=== PATIENT | female | born 1960 | race Caucasian/White ===

== ENCOUNTER → 2016-08-26 | Outpatient (CLI) | payer OTHER, MEDICARE ==
[~2016-08-26] MED LIST: ALLEGRA ALLERGY60 MG PO; AMBIEN 10 MG TA10 MG PO; CYMBALTA60 MG PO; DIOVAN160 MG PO; FLEXERIL PO; FOLIC ACID1 MG PO; MOBIC15 MG PO; ORENCIA125 MG/1 M; PERCOCET 5-3251 EACH PO; SYNTHROID75 MCG PO; XANAX 0.5 MG0.5 M1 PO
== END ==
LOC: RAD 13:18
DX: Z12.31 Encounter for screening mammogram for malignant neoplasm of breast (principal)

== ENCOUNTER → 2016-09-03 | Outpatient (CLI) | payer OTHER, MEDICARE | LOC: CAT 14:41 | DX: M54.2 Cervicalgia (principal); R22.1 Localized swelling, mass and lump, neck ==

== ENCOUNTER → 2017-06-07 | Outpatient (CLI) | payer OTHER, MEDICARE ==
[~2017-06-07] MED LIST changes: +ASPIRIN325 PO; +AZITHROMYCIN 2250 MG PO; +B COMPLEX1 EACH PO; +CENTRUM SILVER1 EAC4 PO; +CLEOCIN HCL150 MG TOP; +ESCITALOPRAM OX10 MG PO; +LEVOTHYROXINE125 MCG PO; +MAGOX 400400 MG PO; +ORENCIA50 MG/0.4 INJECTION; +OXYCODONE-ACET1 EACH PO; +SYNTHROID125 MC1 PO; +VITAMIN D35000 UNI1 PO
== END ==
LOC: RAD 14:30
DX: M48.07 Spinal stenosis, lumbosacral region (principal)

== ENCOUNTER → 2017-06-14 | Outpatient (CLI) | payer OTHER, MEDICARE | LOC: MRI 13:22 → EDSTATUS 14:52 → MRI 14:52 | DX: M47.816 Spondylosis without myelopathy or radiculopathy, lumbar region (principal); M47.894 Other spondylosis, thoracic region; M54.12 Radiculopathy, cervical region; N13.30 Unspecified hydronephrosis; N13.4 Hydroureter ==

== ENCOUNTER → 2017-06-25 | Outpatient (CLI) | payer OTHER, MEDICARE ==
[~2017-06-25] VITALS: Ht 167.6 cm; Wt 96.4 kg
[~2017-06-25] MED LIST changes: -ASPIRIN325 PO
--- NOTE | ~2017-06-25 | HPC ---
[facility] [address] [place] [address] PAIN MANAGEMENT CONSULTATION Name: SHELTON EASTMAN [id number] Admission: 06/25/17 Attend Phys: Alma Alvarez MD Discharge: Date of : 60 Report #: [id number] THIS REPORT FOR: //name// CC: Anclemo Alvarez DATE OF SERVICE: 06/25/2017 FOLLOWUP COMPLAINT: Back, leg, and arm pain. HISTORY OF PRESENT ILLNESS: The patient is a 56-year-old female who has been experiencing pain and discomfort in the low back area with pain radiating down into her legs. She also has some pain and discomfort up in the neck area. She rates her overall pain as an 8/10 at this juncture. Does have a history of joint disease and arthritis. She has some pain and discomfort in the upper back, mid back, lower back as well as in the right leg with pain radiating down past the knee. She describes it as shooting, aching and tender. It can rise to the level of 10. It is exacerbated when she is bending over, picking up greater than 5 pounds. Notes that the pain sometimes is helped by use of a heating pad. Also, notes some improvement when she is lying down. She denies any back surgery. States that she has been disabled since 2013. 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 She has had rheumatoid arthritis for about 25 years with chronic pain. Did have an epidural steroid injection in 2006 and felt that this was beneficial. She has taken biologic agents. ALLERGIES: PROZAC, BENADRYL, SULFA, AMPICILLIN, AUGMENTIN, AND PROMETHAZINE. CURRENT MEDICATIONS: Include abatacept 50 mg/0.4 mL syringe take 50 mg injections q.4 weeks, clindamycin 150 mg topical daily, escitalopram 10 mg daily, oxycodone 5/325 at bedtime, Xanax 0.5 mg 2 tabs, and Meloxicam 15 mg. PAST MEDICAL HISTORY: Arthritis, thyroid disease, and gallbladder disease. PAST SURGICAL HISTORY: Cholecystectomy and appendectomy. SOCIAL HISTORY: She is disabled, has not worked since she has been stable since 2013. 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 In 2006, hurt her back, which was work related. REVIEW OF SYSTEMS: Fatigue, weakness, shortness of breath, frequent urination, kidney stones, headaches, lightheadedness, numbness and tingling sensation, nervousness, depression, thyroid disease, history, and cold intolerance. LABORATORY DATA: MRI of the lumbar spine dated 06/14/2017: [place] [address] PAIN MANAGEMENT CONSULTATION Name: SHELTON EASTMAN Room #: REG ORA Marley#: [id number] Admission: 06/25/17 Attend Phys: Alma Alvarez MD Discharge: Date of : 60 Report #: [id number] 1. L3-L4 shows diffuse disk bulging. There is moderate facet spurring and degenerative change. The central canal is lower limits of normal measuring 10 mm. There is minimal inferior foraminal encroachment. L4-L5 shows mild diffuse disk bulge. There is a slight more focal component laterally into the neural foramen bilaterally greater on the left. This causes minimal inferior foraminal encroachment. Central canal is maintained. Prominent facet spurring and degenerative changes noted. 2. L5-S1 shows disk bulging, which is symmetrical to the left with some neural foraminal encroachment, greater on the left. Central canal is maintained. Moderate facet spurring and degenerative changes are noted. There is suggestion of right hydronephrosis and hydroureter. 3. MRI of the cervical spine dated shows C6-C7, no focal disk fusion. There is minor disk bulge. Neural foramen and central canal are well maintained. 4. C7-T1 shows no focal disk fusion. Central canal and neural foramen are maintained. 5. Mild upper thoracic degenerative changes. PAIN CLINIC ASSESSMENT: 1. Osteoarthritis. The patient has a history of rheumatoid arthritis and is being treated as such. 2. Height 5 feet 6 inches, weight 212 pounds, BMI is 34. 3. VITAL SIGNS: Blood pressure 112/75, pulse 75, respiratory rate 16, room air saturation 98%. 4. Pain intensity 10/10. 5. Fall risk. The patient has fallen in the last 3 months. 6. The patient is not on a blood thinner. 7. History of hypertension. The patient is not being treated for hypertension. 8. Opioid therapy greater than 6 weeks. The patient is not receiving opioid therapy greater than 6 weeks. 9. Risk assessment tool. 10. Functional assessment tool 65-70 showing impact of her pain condition on her daily life. 11. Recreational drug use. Denies use of recreational drugs. 12. Tobacco. Has never smoked cigarettes. 13. Alcohol. Denies use of alcoholic beverages. PHYSICAL EXAMINATION: GENERAL: The patient is a well-developed female, appears her stated age. AFFECT: The patient's affect is appropriate. ORIENTATION: The patient is alert and oriented x 3. HEENT: Normocephalic, atraumatic. Extraocular muscles intact. Hearing is within normal limit. Sclerae nonicteric. NECK: Without adenopathy, JVD or bruits. Reasonable function with flexion, extension, left and right bending, left and right lateral rotation. The patient does note some stiffness with these motions. HEART: Regular rate. No bruits or murmurs. [facility] [address] [place] [address] PAIN MANAGEMENT CONSULTATION Name: SHELTON EASTMAN Room #: REG [facility].#: [id number] Admission: 06/25/17 Attend Phys: Alma Alvarez MD Discharge: Date of : 60 Report #: [id number] CHEST: Clear to auscultation without rubs, rhonchi, or rales. ABDOMEN: Protuberant without organomegaly. EXTREMITIES: Muscle strength to the upper area is 5/5. Muscle bulk is symmetrical. Deep tendon reflexes +1, biceps. The patient does have some perception of some pins and needle sensation in her upper arm and in her hands, right side greater than left. MUSCULOSKELETAL: Shows normal without significant scoliosis, kyphosis or lordosis. The patient has pain and discomfort, which radiates down the right posterior thigh in the L5-S1 distribution with pain radiating down into her foot. Has some paraspinous muscle tenderness in the thoracic area as well as in the lumbar L4-L5 area in the paraspinous muscles. Straight leg raise on the right is positive. Primo sign is negative. IMPRESSION: 1. Thyroid disease. 2. Lumbar radiculopathy involving the right lower extremity. 3. Some neck pain with some discomfort involving the upper extremities, right side greater than left with some numbness and tingling. 4. Rheumatoid arthritis. RECOMMENDATIONS: We discussed treatment options with the patient. Again, she is having pain and discomfort in the lower extremity with pain radiating down to the lower portion of her leg with some numbness and tingling. She also has some discomfort in the upper extremity. MRI does not show a significant area of pathology in this area. We have discussed the possibility of another epidural steroid injection. She had one in the past and noted some improvement in 2006. We used a model to indicate the area of probable pathology in the lower back area. Risks and benefits of a lumbar epidural steroid injection was discussed. Possible complications of the procedure, which could include, but are not limited to infection, increased muscle soreness, worsening of pain, no improvement in pain, trauma to the nerve, spinal headache were reviewed. The patient evaluated the situation and elects to proceed. PROCEDURE NOTE: The patient was placed in the prone position. Her back was sterilely prepped with a Betadine solution. Anterior, posterior as well as lateral viewing of the spine was provided using fluoroscopy. The target area was noted. This area was then infiltrated with 0.25% bupivacaine. A 17-gauge Tuohy with loss of resistance technique was used to gain access to the epidural space. There was no CSF, heme or paresthesia. Total of 80 mg Depo-Medrol, 40 mg triamcinolone and 2 mL of 0.25% bupivacaine was injected. The patient tolerated the procedure well. Pain decreased from 10 to 5 at the time of discharge. Total of 14 seconds fluoroscopy time was used. She will continue with her current medical regimen. She will follow up in the near future. Hopefully, she will find that things continue to be beneficial. [address] [address] PAIN MANAGEMENT CONSULTATION Name: SHELTON EASTMAN Room #: REG ROA Marley#: [id number] Admission: 06/25/17 Attend Phys: Alma Alvarez MD Discharge: Date of : 60 Report #: [id number] We would like to thank you for letting us participate in her care. We hope she continues to improve. By: [id number] Alma Alvarez MD /nt
[2017-06-25 09:31] VITALS: BP 112/75
== END | disposition home or self-care (01) ==
LOC: PAIN 07:20
DX: M51.16 Intervertebral disc disorders with radiculopathy, lumbar region (principal); I10 Essential (primary) hypertension; Z90.49 Acquired absence of other specified parts of digestive tract; Z79.891 Long term (current) use of opiate analgesic; Z87.891 Personal history of nicotine dependence; Z88.8 Allergy status to other drugs, medicaments and biological substances; M19.90 Unspecified osteoarthritis, unspecified site; E07.9 Disorder of thyroid, unspecified; Z68.34 Body mass index [BMI] 34.0-34.9, adult; F11.20 Opioid dependence, uncomplicated

== ENCOUNTER 2017-07-28 05:21 | Inpatient (IN) | payer OTHER, MEDICARE ==
[2017-07-21 13:22] LABS: HEMATOCRIT 41.1 % (37.0-47.0); HEMOGLOBIN 13.6 gm/dL (12.0-15.0); MCH 29.4 pg (26.0-34.0); MCV 89.3 fL (80.0-100.0); RBC 4.61 mil/uL (4.20-5.00); RDW 13.9 % (10.5-14.5); URINE BILIRUBIN NEGATIVE (Negative); URINE BLOOD NEGATIVE (Negative); URINE CLARITY CLEAR; URINE COLOR YELLOW; URINE GLUCOSE-RANDOM* NEGATIVE (Negative); URINE KETONES NEGATIVE (Negative); URINE LEUKOCYTES-REFLEX TRACE (Negative); URINE NITRITE-REFLEX NEGATIVE (Negative); URINE PROTEIN (DIPSTICK) NEGATIVE (Negative); URINE UROBILINOGEN 0.2 E.U./dl (0.2-1.0); WBC 8.1 thou/uL (4.0-11.0)
[2017-07-21 13:29] LABS: ALBUMIN 3.5 g/dL (3.4-5.0); CALCIUM 9.3 mg/dL (8.5-10.1); CREATININE 0.9 mg/dL (0.6-1.0); POTASSIUM 3.8 mmol/L (3.5-5.1)
[2017-07-21 13:39] LABS: PROTIME 9.9 Seconds (9.3-11.4)
[~2017-07-28] VITALS: Ht 167.6 cm; Wt 93.0 kg
--- NOTE | ~2017-07-28 | EKG ---
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
--- NOTE | ~2017-07-28 | O ---
[facility] [place] [address] OPERATIVE REPORT Name: SHELTON EASTMAN Room #: 404-P [facility] IN M.R.#: [id number] Admission: 07/28/17 Attend Phys: Bharat Van MD Discharge: Date of : 60 Report #: [id number] THIS REPORT FOR: //name// CC: Ancelmo Van DATE OF SERVICE: 07/28/2017 PREOPERATIVE DIAGNOSIS: Right knee rheumatoid arthritis. POSTOPERATIVE DIAGNOSIS: Right knee rheumatoid arthritis. PROCEDURE: Right total knee arthroplasty with NAVIO assist. SURGEON: Bharat Van M.D. EXPORT FREIGHT SPECIALIST: Marquita Heath PA-C. ANESTHESIA: LMA with an adductor canal block. INDICATION FOR EXPORT FREIGHT SPECIALIST: Throughout the case, extensive retraction and manipulation of the knee was required. This was afforded to me by my assistant womens volleyball coach. IMPLANTS: Rucker and Nephew size 4 Legion Oxinium posterior stabilized femur, size 3 tibia, size 35 patella and a size 11 highly constrained polyethylene liner. TOURNIQUET TIME: 81 minutes. ESTIMATED BLOOD LOSS: 25 mL. COMPLICATIONS: None. SPECIMENS: None. CONDITION UPON LEAVING THE OPERATING ROOM: Stable. INDICATIONS FOR PROCEDURE: The patient is a 56-year-old female who has rheumatoid arthritis. She has had severe right knee pain and after failure of conservative treatment for this, she elected for right total knee arthroplasty. DESCRIPTION OF PROCEDURE: Risks, benefits, alternatives, complications were discussed in detail with the patient including but not limited to risk of anesthesia, risk of damage to nerves, arteries, blood vessels, risk for infection, bleeding, risk for continued knee pain, need for reoperation. Informed consent was obtained from the patient. Right knee was appropriately [address] [address] OPERATIVE REPORT Name: SHELTON EASTMAN Room #: 404-P [facility] IN .R.#: [id number] Admission: 07/28/17 Attend Phys: Bharat Van MD Discharge: Date of : 60 Report #: [id number] marked in the preoperative holding area. Adductor canal block was placed by anesthesia. IV clindamycin was given for preoperative antibiotics. She was brought to the operating room and placed in supine position on operating room table. LMA anesthesia was induced without complication. Tourniquet was placed on the right thigh. Right lower extremity was prepped and draped in normal sterile fashion. Timeout was performed properly identifying the patient and procedure as well as the instrumentation and implants. All in the operating room were in agreement. Standard midline approach to the knee was made with 10 blade through the skin. Dissection was taken down sharply to the fascia and deep flaps were developed medially and laterally. Fresh 10 blade was used to make a medial parapatellar arthrotomy and the knee was inspected, and there was extensive arthritic change tricompartmentally of the knee. The osteophytes were removed from the femur. ACL and PCL were removed sharply. The reference pin for the femur and tibia were then placed in the system. The NAVIO system was calibrated and the knee was taken through range of motion to determine resection and balancing. The data points for this femur and tibia were then taken using the probe and the olivia was used to drill the guide holes for the femoral resection guide and a tibial resection guide. Femoral section guide was pinned in place and distal femoral cut was made. Size 4 femur was the appropriate size and then the size four, 4-in-1 cutting block were placed and the anterior, posterior and chamfer cuts were made on the femur. Tibia was subluxed anteriorly and tibial resection was made and flexion and extension gaps were checked and found to have good balance in flexion and extension. There was some laxity of the MCL, which may have been from over aggressive retraction, it was felt that this could be made up for using a highly constrained liner. The tibia was sized, found to be a size 3. The size 3 tibial trial was placed, size 4 femoral trial was placed and the box cut was made. This was trialed with a size 11 highly constrained polyethylene and found to have a good fit and balance. 9 mm was taken off the posterior surface of the patella and a size 35 patellar button trial was placed. Knee was taken through range of motion, found to be stable, found to have good balance in flexion and extension with good patellar tracking. After this, trial components were removed. Bony ends were thoroughly irrigated with normal saline. Final size 3 tibia, size 4 Legion Oxinium posterior stabilized femur and a size 35 patella were cemented in place using standard cementation techniques. While the cement cured, a periarticular injection consisting of morphine, ropivacaine, epinephrine and Toradol was placed around the knee joint. After the cement cured, the tourniquet was deflated. Hemostasis was obtained with Bovie cautery. Final size 11 highly constrained polyethylene was placed. Knee was taken through range of motion, found to be stable, found to have good balance in flexion and extension both medially and laterally. 1 gram of vancomycin was placed deep in the knee joint. The fascia was closed with 0 Vicryl, skin was closed with 2-0 Vicryl, 3-0 Monocryl. Dermabond and a JOSS dressing was applied. The patient tolerated [address] [address] OPERATIVE REPORT Name: SHELTON EASTMAN Room #: 404-P [facility] IN M.R.#: [id number] Admission: 07/28/17 Attend Phys: Bharat Van MD Discharge: Date of : 60 Report #: [id number] this procedure well and went to the recovery room under the care of anesthesia postoperatively. <ELECTRONICALLY SIGNED> By: Bharat Van MD 07/29/17 1106 1518 1821 Bharat Van MD /nt
[2017-07-28 12:54] VITALS: BP 136/85
[2017-07-28 16:55] VITALS: BP 144/90
[2017-07-28 18:30] VITALS: BP 136/72
[2017-07-28 19:35] VITALS: BP 114/73
[2017-07-28 23:56] VITALS: BP 128/90
[2017-07-29 04:00] VITALS: BP 105/58
[2017-07-29 05:40] LABS: HEMATOCRIT 34.1 % (37.0-47.0); HEMOGLOBIN 11.5 gm/dL (12.0-15.0); MCH 29.8 pg (26.0-34.0); MCHC 33.7 g/dL (28.0-37.0); MCV 88.5 fL (80.0-100.0); RBC 3.86 mil/uL (4.20-5.00); RDW 14.1 % (10.5-14.5); WBC 14.7 thou/uL (4.0-11.0)
[2017-07-29 07:12] VITALS: BP 98/57
[2017-07-29 15:46] VITALS: BP 102/53
[2017-07-29 21:21] VITALS: BP 116/57
[2017-07-30 04:00] VITALS: BP 92/55
[2017-07-30 06:01] LABS: HEMATOCRIT 29.4 % (37.0-47.0); HEMOGLOBIN 9.8 gm/dL (12.0-15.0); MCH 29.8 pg (26.0-34.0); MCHC 33.2 g/dL (28.0-37.0); MCV 89.7 fL (80.0-100.0); RBC 3.27 mil/uL (4.20-5.00); RDW 14.2 % (10.5-14.5); WBC 8.9 thou/uL (4.0-11.0)
[2017-07-30 07:35] VITALS: BP 113/70
[2017-07-30 12:50] VITALS: BP 113/70
[2017-07-30 12:51] VITALS: BP 113/70
== END 2017-07-30 14:40 | disposition home health service (06) | DRG 470 ==
LOC: 4N 05:21 → TBA 05:21 → PRE 05:36 → 4N 16:52 → ENTRNSPT 07-30 14:32 → 4N 07-30 14:40 → EDTRNSPTSTS 07-30 14:41
PROVIDERS: Orthopaedic Surgery
PROC: 0SRC0J9 Replacement of Right Knee Joint with Synthetic Substitute, Cemented, Open Approach (ICD-10-PCS; principal; 2017-07-28)
DX: M06.861 Other specified rheumatoid arthritis, right knee (principal); F41.9 Anxiety disorder, unspecified; E03.9 Hypothyroidism, unspecified; F32.9 Major depressive disorder, single episode, unspecified; Z79.899 Other long term (current) drug therapy; Z88.1 Allergy status to other antibiotic agents; Z88.2 Allergy status to sulfonamides; Z88.8 Allergy status to other drugs, medicaments and biological substances
CPT/HCPCS: 10790; 50010; 50415; 50954; 51130; 51225; 51771; 53000; 53078; 54118; 56527; 56528; 57095

== ENCOUNTER 2018-02-16 05:22 | Inpatient (IN) | payer OTHER, MEDICARE ==
[2018-01-26 13:17] LABS: URINE BILIRUBIN NEGATIVE (Negative); URINE BLOOD 2+ (Negative); URINE CLARITY CLEAR; URINE COLOR YELLOW; URINE GLUCOSE-RANDOM* NEGATIVE (Negative); URINE KETONES NEGATIVE (Negative); URINE NITRITE-REFLEX NEGATIVE (Negative); URINE PROTEIN (DIPSTICK) NEGATIVE (Negative); URINE SPECIFIC GRAVITY 1.015 (1.005-1.035); URINE UROBILINOGEN 0.2 E.U./dl (0.2-1.0)
[2018-01-26 13:17] LABS: HEMATOCRIT 39.3 % (37.0-47.0); HEMOGLOBIN 13.2 gm/dL (12.0-15.0); MCH 29.3 pg (26.0-34.0); MCHC 33.6 g/dL (28.0-37.0); MCV 87.2 fL (80.0-100.0); RBC 4.5 mil/uL (4.20-5.00); RDW 14.2 % (10.5-14.5); WBC 6.8 thou/uL (4.0-11.0)
[2018-01-26 13:19] LABS: URINE LEUKOCYTES-REFLEX TRACE (Negative)
[2018-01-26 13:25] LABS: ALBUMIN 3.6 g/dL (3.4-5.0); CALCIUM 9.4 mg/dL (8.5-10.1); CREATININE 0.9 mg/dL (0.6-1.0); POTASSIUM 4.1 mmol/L (3.5-5.1)
[2018-01-26 13:26] LABS: BACTERIA-REFLEX 1-9 Few /HPF (None Seen); CASTS None Seen /LPF (None Seen); CRYSTALS None Seen /LPF (None Seen); SQUAMOUS 4-10 Moderate /LPF (0-3); URINE RBC 3-10 Few /HPF (0-2); URINE WBC-REFLEX 0-5 Rare /HPF (0-5)
[2018-01-26 13:30] LABS: PROTIME 10.4 Seconds (9.3-11.4)
[~2018-02-16] VITALS: Ht 167.6 cm; Wt 89.8 kg
--- NOTE | ~2018-02-16 | O ---
[facility] [place] [address] OPERATIVE REPORT Name: SHELTON EASTMAN Room #: 432-P [facility] IN M.R.#: [id number] Admission: 02/16/18 Attend Phys: Bharat Van MD Discharge: Date of : 60 Report #: [id number] THIS REPORT FOR: //name// CC: Ancelmo Van DATE OF SERVICE: 02/16/2018 PREOPERATIVE DIAGNOSIS: Left knee rheumatoid arthritis. POSTOPERATIVE DIAGNOSIS: Left knee rheumatoid arthritis. PROCEDURE: Left total knee arthroplasty using Navio robotic assistance. SURGEON: Bharat Van MD. MANAGER CLINICAL APPLICATIONS: Marquita Heath PA-C INDICATION FOR MANAGER CLINICAL APPLICATIONS: Throughout the case, extensive retraction and manipulation of the knee was required. This was afforded to me by my home care assistant. ANESTHESIA: LMA with an adductor canal block. IMPLANTS: Rucker and Nephew size 5 Legion Oxinium posterior stabilized femur, size 3 tibia, size 9 polyethylene and size 35 patella. ESTIMATED BLOOD LOSS: 25 mL. TOURNIQUET TIME: 74 minutes. COMPLICATIONS: None. SPECIMENS: None. CONDITION UPON LEAVING THE OPERATING ROOM: Stable. INDICATIONS FOR PROCEDURE: The patient is a 57-year-old female with severe left knee rheumatoid arthritis. She had failed conservative measures for this and after discussion with her, she elected for left total knee arthroplasty. DESCRIPTION OF PROCEDURE: Risks, benefits, alternatives, complications were discussed in detail with the patient including but not limited to risk of anesthesia, risk of damage to nerves, arteries, blood vessels, risk for infection, bleeding, risk for continued knee pain and need for reoperation. Informed consent was obtained from the patient. Left knee was appropriately marked in the preoperative holding area. IV clindamycin was given for [facility] [address] [place] [address] OPERATIVE REPORT Name: SHELTON EASTMAN Maureen Room #: 432-P [facility] IN M.R.#: [id number] Admission: 02/16/18 Attend Phys: Bharat Van MD Discharge: Date of : 60 Report #: [id number] preoperative antibiotics. She was brought to the operating room and placed in supine position on operating room table. LMA anesthesia was induced without complication. Tourniquet was placed on the left thigh. Left lower extremity was prepped and draped in normal sterile fashion. Timeout was performed, properly identifying the patient and procedure as well as the instrumentation and implants. All in the operating room were in agreement. Left lower extremity was exsanguinated, tourniquet was inflated. Tourniquet time was 74 minutes. Standard midline approach to knee was made with 10 blade through the skin. Dissection was taken down sharply to the fascia and deep flaps were developed medially and laterally. Fresh 10 blade was used to make a medial parapatellar arthrotomy and the knee was inspected and shown to have severe tricompartmental rheumatoid arthritic change. The reference pins were then placed in the femur and the tibia and the knee was digitally mapped using the Wuiper robotic system. The femur was sized as a size 5 and tibia as a size 3. After acceptance of the intraoperative plan, the distal femoral cut was made with the Navio bur. The size 5, 4-in-1 cutting block was placed and anterior, posterior and chamfer cuts were made. After this, attention was turned to the tibia and the remainder of the menisci removed with Bovie cautery and the tibial resection guide was pinned in place using the Wuiper robotic system to place the tibial guide. After the tibial resection was made, flexion and extension gaps were checked and found to be slightly tight medially in extension and the osteophytes were removed from the tibia and a limited medial release using the pie crust technique was performed. This balanced the knee well. After this, the tibia was sized, found to be a size 3. The size 3 tibial trial was placed, pinned and punched. A size 5 femoral trial was placed and the box cut was made. This was then trialed with a size 9 polyethylene. Knee was taken through range of motion, found to have good balance in flexion and extension both medially and laterally and to manual testing as well as digital testing using the robot. A 9 mm was taken off the posterior surface of the patella and a size 35 patellar trial button was placed. Knee was taken through range of motion, found to have good balance as well as good stability of the patella. Trial components were removed. Bony ends were thoroughly irrigated with normal saline. A final size 3 tibia, size 5 Legion Oxinium femur and a size 35 patella were cemented in place using standard cementation techniques. While the cement cured, a periarticular injection consisting of morphine, ropivacaine, epinephrine and Toradol was placed around the knee joint capsule. After the cement cured, tourniquet was deflated. Hemostasis was obtained with Bovie cautery. A final size 9 polyethylene was placed. A gram of vancomycin was placed deep in the joint. The fascia was closed with 0 Vicryl, skin was closed with 2-0 Vicryl, 3-0 Monocryl and Dermabond and a JOSS dressing was applied. The patient tolerated this procedure well and went to recovery room under care of anesthesia postoperatively. By: [id number] 1724 Bharat Van MD /nt
[~2018-02-16 05:22] MED LIST changes: +ASPIRIN325 PO
[2018-02-16 13:47] VITALS: BP 115/73
[2018-02-16 21:18] VITALS: BP 112/70
[2018-02-17 04:53] VITALS: BP 122/56
[2018-02-17 06:15] LABS: HEMATOCRIT 31.3 % (37.0-47.0); HEMOGLOBIN 10.5 gm/dL (12.0-15.0); MCH 29.3 pg (26.0-34.0); MCHC 33.6 g/dL (28.0-37.0); MCV 87.2 fL (80.0-100.0); RBC 3.59 mil/uL (4.20-5.00); RDW 13.6 % (10.5-14.5); WBC 13.4 thou/uL (4.0-11.0)
[2018-02-17 07:40] VITALS: BP 95/56
[2018-02-17 15:56] VITALS: BP 104/62
[2018-02-17 20:30] VITALS: BP 133/54
[2018-02-18 04:30] VITALS: BP 103/60
[2018-02-18 05:09] LABS: HEMATOCRIT 27.7 % (37.0-47.0); HEMOGLOBIN 9.5 gm/dL (12.0-15.0); MCH 29.8 pg (26.0-34.0); MCHC 34.3 g/dL (28.0-37.0); RBC 3.18 mil/uL (4.20-5.00); RDW 13.7 % (10.5-14.5); WBC 8.1 thou/uL (4.0-11.0)
[2018-02-18 08:00] VITALS: BP 136/65
[2018-02-18] MEDS ORDERED: TRI-BUFFERED A325 M1 PO (09:12)
[2018-02-18] MEDS ORDERED: MS CONTIN15 MG PO (10:17)
[2018-02-18] MEDS ORDERED: PERCOCET PO (10:17)
[2018-02-18 12:33] VITALS: BP 136/65
[2018-02-18 12:51] VITALS: BP 136/65
== END 2018-02-18 13:41 | disposition home or self-care (01) | DRG 470 ==
LOC: 4E 05:22 → TBA 05:22 → PRE 07:59 → 4E 16:15
PROVIDERS: Orthopaedic Surgery
PROC: XR2H021 Monitoring of Left Knee Joint using Intraoperative Knee Replacement Sensor, Open Approach, New Technology Group 1 (ICD-10-PCS; principal; 2018-02-16)
PROC: 0SRD069 Replacement of Left Knee Joint with Oxidized Zirconium on Polyethylene Synthetic Substitute, Cemented, Open Approach (ICD-10-PCS; principal; 2018-02-16)
DX: M17.12 Unilateral primary osteoarthritis, left knee (principal); Z79.899 Other long term (current) drug therapy; Z79.82 Long term (current) use of aspirin; Z88.1 Allergy status to other antibiotic agents; Z88.2 Allergy status to sulfonamides; Z88.8 Allergy status to other drugs, medicaments and biological substances
CPT/HCPCS: 10783; 50010; 50101; 50415; 50954; 51130; 51225; 51771; 53000; 53078; 53365; 54118; 56527; 56528; 57095; 57103; 57109; 57110; 57113; 57127; 62110; 62900; 64042; 70005

== ENCOUNTER 2019-06-11 21:29 | Emergency (ER) | payer OTHER, MEDICARE ==
[~2019-06-11] VITALS: Ht 167.6 cm; Wt 88.0 kg
[~2019-06-11 21:29] MED LIST changes: +MS CONTIN15 MG PO; +PERCOCET PO; +TRI-BUFFERED A325 M1 PO
[2019-06-11 21:30] VITALS: BP 166/79
[2019-06-11] MEDS ORDERED: CLEOCIN HCL150 MG PO (22:07)
[2019-06-11] MEDS ORDERED: IBUPROFEN 600600 M1 PO (22:07)
== END 2019-06-12 00:47 | disposition home or self-care (01) ==
LOC: ER 21:29
DX: K04.7 Periapical abscess without sinus (principal); M06.9 Rheumatoid arthritis, unspecified; Z88.1 Allergy status to other antibiotic agents; Z88.2 Allergy status to sulfonamides; Z88.8 Allergy status to other drugs, medicaments and biological substances; Z90.49 Acquired absence of other specified parts of digestive tract; Z96.653 Presence of artificial knee joint, bilateral